=== PATIENT | female | born 1975 | race Caucasian/White ===

== ENCOUNTER → 2019-11-12 | Day surgery (SDC) | payer OTHER ==
[~2019-11-12] MED LIST: ASPIRIN CHEW81 MG PO; BUPIVACAINE HCL 0.5% INJ 30 ML VIAL INJ ONE; CEFAZOLIN SOD 1 GM/NS 50ML 100 ML IV ONE; DEXAMETHASONE SOD PHOS INJ 4 MG/ML VIAL ONE; FENTANYL CITRATE/PF 100MCG/2 ML INJ ONE; GRALISE600 MG PO; KEPPRA500 MG PO; LIDOCAINE HCL 2% LOCAL INJ 5 ML SDV VIAL INJ ONE; MIDAZOLAM HCL 2 MG/2 ML VIAL ONE; ONDANSETRON HCL INJ 2MG/ML 2ML 2 MG/ML VIAL ONE; PROPOFOL IV EMULSION 10 MG/ML 20 ML VIAL ONE; SEVOFLURANE INHAL SOLN 250 ML PEN BTL ONE
[2019-11-12 13:35] VITALS: BP 134/91
--- NOTE | 2019-11-17 13:29 | Operative Report ---
DATE OF PROCEDURE: 11/12/2019 SURGEON: Luis Ramos MD PREOPERATIVE DIAGNOSIS: Right carpal tunnel syndrome. POSTOPERATIVE DIAGNOSIS: Right carpal tunnel syndrome. OPERATIONS AND PROCEDURES PERFORMED: The patient underwent a right carpal tunnel release. PLANT PRODUCTION WORKER: There was no service assistant. ANESTHESIA: General endotracheal intubation anesthesia. IV FLUIDS: As per the anesthesia record. BRIEF DESCRIPTION OF THE PATIENT'S OPERATIVE PROCEDURE: Ms. Houston was all taken to the operating room and placed in supine position on the operating table. Following induction of general anesthesia as well as endotracheal intubation, the patient's right upper extremity was examined under anesthesia. She was found to have no significant gross abnormality to the right upper extremity. The patient's upper extremity was prepped and draped in surgical fashion. The case was begun by creating an incision along the thenar palmar crease. This incision was carried through skin only. Blunt dissection was used to deepen the incision to the level of the transverse carpal ligament. The distal edge of the transverse carpal ligament was identified and hemostat was placed beneath the ligament. The transverse carpal ligament was then divided in line with the skin incision. The floor of the carpal canal was evaluated and found to have no significant abnormalities. The wound was copiously irrigated. The tourniquet was deflated and hemostasis was obtained prior to closing the wound. The wound was closed in a single layer fashion. Dressings were applied and the patient was awakened to the postanesthesia care in stable condition. MD LOIDA Candelario/MODL /[id number]
== END | disposition home or self-care (01) ==
LOC: OR 08:11
PROVIDERS: ATTEND Specialist
DX: G56.01 Carpal tunnel syndrome, right upper limb (principal); G80.9 Cerebral palsy, unspecified; R56.9 Unspecified convulsions; M19.90 Unspecified osteoarthritis, unspecified site; F17.210 Nicotine dependence, cigarettes, uncomplicated; Z01.812 Encounter for preprocedural laboratory examination; Z11.59 Encounter for screening for other viral diseases; Z79.82 Long term (current) use of aspirin
CPT/HCPCS: 64721; 81025; J0690; J1100; J2001; J2405; J2704; U0002; J2250; J3010